=== PATIENT | female | born 1960 | race Caucasian/White ===

== ENCOUNTER → 2016-11-17 | Outpatient (CLI) | payer OTHER ==
[~2016-11-17] MED LIST: ALLEGRA PO; APRISO0.375 GM PO; KLONOPIN1 M1 PO; LACTULOSE20 GM/30 M PO; LEVSIN0.125 M3 SL; LOSARTAN POTASS50 MG PO; MINIVELLE1 EAC2 TD; NEURONTIN800 MG PO; NUPERCAINAL56.7 GM; PANTOPRAZOLE SO40 MG PO; PHENERGAN12.5 MG PO; PREPARATION H1 EAC1 TOP; PRISTIQ100 MG PO; PROBIOTIC1 EAC1 PO; PROGESTERONE100 MG PO; SENNA LAXATIVE25 MG PO
== END | disposition home or self-care (01) ==
LOC: CSSDAY 12:57
DX: K50.90 Crohn's disease, unspecified, without complications (principal)
CPT/HCPCS: 96365; C9487